=== PATIENT | female | born 1985 | race Caucasian/White ===

== ENCOUNTER 2021-12-01 05:23 | Emergency (ER) | payer MEDICARE, OTHER ==
[~2021-12-01] VITALS: Ht 170.2 cm; Wt 104.3 kg
[2021-12-01] MEDS ORDERED: HYDR1TAB94 PO (06:20)
[2021-12-01] MEDS ORDERED: AMOCLA875 PO (06:20)
== END 2021-12-01 06:34 | disposition home or self-care (01) ==
LOC: ER 05:23
DX: K02.9 Dental caries, unspecified (principal); Z88.8 Allergy status to other drugs, medicaments and biological substances
CPT/HCPCS: 99282; A9270